=== PATIENT | male | born 1955 | race Caucasian/White ===

== ENCOUNTER 2019-08-26 23:41 | Emergency (ER) | payer SELFPAY ==
[~2019-08-26] VITALS: Ht 167.6 cm; Wt 81.6 kg
[2019-08-26 23:43] VITALS: Ht 167.6 cm; Wt 81.6 kg
[2019-08-27 00:12] LABS: BASOPHIL % 0 % (0-2); PLATELET COUNT 348 x10^3mcL (130-400); RED CELL DISTRIBUTION WIDTH 14.6 % (11.5-14.5)
[2019-08-27 00:21] LABS: CALCIUM 9.3 mg/dL (8.5-10.1); CARBON DIOXIDE 26.4 mmol/L (21-32); CHLORIDE SERUM 101 mmol/L (98-107); CREATININE SERUM 0.9 mg/dL (0.7-1.3); GFR1 > 60 mL/min; GLUCOSE SERUM 285 mg/dL (74-106); SODIUM SERUM 138 mmol/L (136-145)
[2019-08-27 01:48] VITALS: BP 148/84
== END 2019-08-27 01:48 | disposition other institution (70) ==
LOC: ED 23:41
PROVIDERS: Emergency Medicine
DX: E11.65 Type 2 diabetes mellitus with hyperglycemia (principal); I10 Essential (primary) hypertension; E78.00 Pure hypercholesterolemia, unspecified; E86.0 Dehydration; Z88.5 Allergy status to narcotic agent
CPT/HCPCS: 82962; J7030

== ENCOUNTER 2019-08-26 23:41 | Emergency (ER) | payer OTHER | END 2019-08-27 01:48 | disposition other institution (70) | LOC: ED 23:41 | DX: Z02.89 Encounter for other administrative examinations (principal) ==